=== PATIENT | female | born 1940 | race Caucasian/White ===

== ENCOUNTER 2017-04-02 17:25 | Inpatient (IN) | payer MEDICARE ==
[~2017-04-02] VITALS: Ht 162.6 cm; Wt 65.0 kg
[~2017-04-02 17:25] MED LIST: ALLEGRA 60 MG T60 MG PO; AMBIEN10 MG PO; ARICEPT10 MG PO; ATIVAN0.5 MG PO; ATIVAN1 MG PO; BENTYL10 MG PO; CALCIUM 500 + D1 TAB PO; CIPRO500 MG PO; COREG12.5 MG PO; CYMBALTA30 MG PO; DEPAKOTE ER250 MG PO; FLAGYL500 MG PO; FLOMAX0.4 MG PO; LEVAQUIN500 MG PO; MELATONIN 3 MG1 TAB PO; METAMUCIL PACKE1 PKT PO; MIRALAX17 GM PO; NAMENDA10 MG PO; NAMENDA10 MG/5 ML PO; NEURONTIN 300300 MG PO; PAMELOR10 MG PO; PEPCID20 MG PO; PREPARATION H O57 GM TOPICAL; PRILOSEC20 MG PO; PROTONIX40 MG PO; RISPERDAL0.25 MG PO; TOPROL XL25 MG PO; TRAZODONE HCL50 MG PO; TUMS500 MG PO; VITAMIN D31000 UNIT PO; ZOFRAN ODT4 MG/UDTAB PO
[2017-04-02 19:30] VITALS: BP 67/42
[2017-04-02] MEDS ORDERED: IBUPROFEN200 MG PO (19:35)
[2017-04-02] MEDS ORDERED: ACETAMINOPHEN325 MG PO (19:36)
[2017-04-02] MEDS ORDERED: GAS-X80 MG PO (19:38)
[2017-04-02] MEDS ORDERED: CARAFATE1 G PO (19:39)
[2017-04-02] MEDS ORDERED: MELATONIN 3 MG1 TAB PO (19:40)
--- NOTE | 2017-04-03 03:10 | NUR ---
NEW ADMIT TO DOCTOR [facility] TO [facility]. PATIENT WAS ADMITTED FOR INCREASED AGGRESSION, AGGITATION, AND SUICIDAL IDEATIONS. UPON ACCEPTANCE OF PATIENT, PATIENT WAS CALM AND COOPERATIVE. ORIENTED TO UNIT. PATIENT HAS A DNR STATUS AT PRISON.
[2017-04-03 07:08] LABS: BASOPHILS 0.4 % (0-2); EOSINOPHILS 0.7 % (0-7); HEMATOCRIT 32.1 % (36.0-48.0); HEMOGLOBIN 10.6 g/dL (12-16); LYMPHOCYTES 27.6 % (15-50); MCH 27.6 pg (26.0-34.0); MCV 83.6 fL (80.0-100.0); MEAN PLATELET VOLUME 9.4 fL (7.4-10.4); MONOCYTES 9.8 % (2-11); NEUTROPHILS 60.5 % (40-80); PLATELET COUNT 375 10x3/uL (130-400); RBC 3.84 10x6/uL (4.00-5.40); RDW 13.2 % (11.5-14.5); WBC 7.2 10x3/uL (4.8-10.8)
[2017-04-03 07:17] LABS: HEMOGLOBIN A1C 6.5 % (4.8-6.0)
[2017-04-03 07:34] LABS: ALBUMIN 2.8 g/dL (3.4-5.0); ANION GAP 11.1 mmol/L (8-16); BILIRUBIN - TOTAL 0.26 mg/dL (0.2-1.3); CALCIUM 8.6 mg/dL (8.5-10.1); CARBON DIOXIDE 27.3 mmol/L (21.0-32.0); CHOL - HDL RATIO 3.6 ratio (2.3-4.1); CREATININE - SERUM 1.1 mg/dL (0.6-1.3); LDL-HDL RATIO 2.1 ratio (1.5-3.5); POTASSIUM - SERUM 3.4 mmol/L (3.5-5.1); PROTEIN - SERUM 6.6 g/dL (6.4-8.2); THYROID STIMULATING HORMONE 1.36 uIU/mL (0.36-3.74)
[2017-04-03 13:53] LABS: APPEARANCE CLOUDY (CLEAR); BILIRUBIN NEGATIVE (NEGATIVE); COLOR YELLOW (YELLOW); GLUCOSE NEGATIVE (NEGATIVE); KETONE NEGATIVE (NEGATIVE); NITRITE NEGATIVE (NEGATIVE); PROTEIN 2+ mg/dL (NEGATIVE); UROBILINOGEN NORMAL (NORMAL)
[2017-04-03 13:54] LABS: AMORPHOUS SEDIMENT >1+ /lpf (NONE SEEN); BACTERIA MANY /hpf (NONE SEEN); EPITHELIAL CELLS 0-5 /hpf (0-5); GRANULAR CAST NONE SEEN /lpf (NONE SEEN); HYALINE CAST NONE SEEN /lpf (NONE SEEN); MUCUS <1+ /lpf (NONE SEEN); RED CELL CAST NONE SEEN /lpf (NONE SEEN); RED CELLS - URINE 0-5 /hpf (0-5); SPERMATOZOA NONE SEEN /hpf (NONE SEEN); WAXY CAST NONE SEEN /lpf (NONE SEEN); YEAST NONE SEEN /hpf (NONE SEEN)
[2017-04-03 14:03] VITALS: BP 110/75; BMI 24.6
[2017-04-03 16:04] VITALS: BP 110/75
--- NOTE | 2017-04-03 18:37 | NUR ---
HAS BEEN ORIENTED TO SELF,PLACE AND TIME BUT DENIES REASON FOR ADMISSION.COMPLIANT WITH MEDS AND STAFF.AMBULATORY.WILL CONTINUE WITH PLAN OF CARE,MONITOR FOR CHANGES AND SAFETY.
[2017-04-03 19:30] VITALS: BP 115/86
--- NOTE | 2017-04-03 22:24 | NUR ---
RECEIVED IN HALLWAY OUTSIDE OF NURSES STATION. CALM AND COOPERATIVE WITH CARE AND ASSESSMENTS. NO SIGNS OF AGGRESSION. REDIRECT AND REORIENT NEEDED. ENCOURAGE TO EXPRESS NEEDS. RESTING QUIETLY IN BED AT THIS TIME. CONTINUE PLAN OF CARE
--- NOTE | 2017-04-03 22:43 | NUR ---
STATED RECTAL PAIN OF 9. PRN ADVIL 400MG PO GIVEN FOR PAIN
--- NOTE | 2017-04-04 05:02 | PSY ---
PATIENT NAME:YONG DUGAN MEDICAL RECORD: [id number] : 44 LOCATION:[facility] ADMISSION DATE: 04/02/17 ACCOUNT: [id number] PSYCHIATRIC EVALUATION DATE OF EVALUATION: 04/03/17 IDENTIFYING DATA: A 76-year-old white female, who was admitted for the second time to [facility]. HISTORY OF PRESENT ILLNESS: This patient has a preexisting diagnosis of dementia. She has been a fdc resident for some time. She currently lives in [facility]. long term staff reports the patient is becoming extremely confused and anxious and reportedly has made suicidal statements. The patient has been very medication seeking as well. On a previous admission 2 years ago, the patient had been making threats to the fdc staff. She had been claiming that she was being mistreated when in fact she was not. She did exhibit depressive symptoms as well. During that hospitalization, the patient exhibited agitated and disruptive behavior from time to time and did require redirection. However, she stabilized with the use of both mood stabilizing and antidepressant medications and was returned to the fdc. She is now again admitted as mentioned due to reported suicidal statements. PAST MEDICAL HISTORY: Significant for hypertension and GERD. FAMILY HISTORY: Noncontributory. ALLERGIES: LISTED HALDOL AND SEROQUEL. SOCIAL HISTORY: The patient is a long-term fdc resident. She does not have noted substance abuse issues, although she does exhibit med-seeking behavior in terms of benzodiazepines. MENTAL STATUS: On interview, the patient is hyperalert and intrusive. Mood is alternately irritable and elevated. Affect is brittle. Speech is overly loud and somewhat pressured. Content of thought shows nonspecific paranoid ideation and somatic focus. On sensorium testing, the patient is oriented to person, but not correctly as to place nor to time. Remote, intermediate, and short-term recall all show deficits. 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 AXIS III: Hypertension and gastroesophageal reflux disease. AXIS IV: Moderate. AXIS V: 36. PLAN: 1. The patient is admitted for further medical and psychiatric workup. 2. Supportive therapy. 3. Coordinate with referring facility regarding aftercare. TRANSINT:[id number] Voice Confirmation ID: [id number] DOCUMENT ID: [id number] JUNG STARKEY III, MD at 0502 CC: [id number] DICTATION DATE: 04/03/17923 SPRING LAYER: 04/03/1750 ADM IN [place] [id number] [place] [id number]
--- NOTE | 2017-04-04 09:51 | NUR ---
ADMINISTERED 650MG TYLENOL PER PT REQUEST FOR LEFT ABDOMEN PAIN 12/07 SHARP. NO S/SX OF ACUTE DISTRESS. WILL CONTINUE TO MONITOR
--- NOTE | 2017-04-04 10:38 | NUR ---
ORIENTED X 3 BUT DENIES REMEMBERING ACTION THAT CAUSED HER TO BE ADMITTED TO HOSPITAL.FREQUENTLY C/O PAIN IN LEFT UPPER ABD,STATES SHE HAS IBS AND THAT REMOVED A SMALL AMT OF HER COLON.TYLENOL WAS GIVEN FOR PAIN PER ORDERS BY MED NURSE.COMPLIANT WITH STAFF AND MEDS BUT IS ARGUMENTIVE ABOUT WHY SHE CAN'T GO BACK TO BED.WILL CONTINUE WITH PLAN OF CARE,MONITOR FOR CHANGES AND SAFETY.
--- NOTE | 2017-04-04 13:03 | NUR ---
BECAME VERY AGGITATED AND DEMANDING ABOUT WHO COULD SIT ON SOFA POST LUNCH.WANTED THE TWO WOMEN WHOM HAD BEEN SITTING THERE WITH HER THIS MORNING TO SIT THERE.NURSE TOLD HER ANYONE CAN SIT ON SOFA,SHE STUCK HER TONGUE OUT IN A SPITEFUL MANNER BUT THEN SAT ON SOFA AND COVERED UP HER HEAD.
--- NOTE | 2017-04-04 16:23 | NUR ---
DURING VISITATION AND DR. ROBERTO ROUNDING WITH PT AND FAMILY, PT STARTED VOMITTING AFTER COMPLAINING OF BEING NAUSEATED. DR. ROBERTO GAVE VERBAL ORDER TO GIVE 4MG ZOFRAN IM. ADMINISTERED IN RIGHT DELTOID.
[2017-04-04 19:09] VITALS: BP 157/76
[2017-04-04 20:30] VITALS: BP 180/83
--- NOTE | 2017-04-04 21:47 | NUR ---
RECEIVED IN HALLWAY. WALKING TO HER BEDROOM. ATTENTION SEEKING AT TIMES. CALM AND COOPERATIVE WITH CARE AND ASSESSMENTS. DENIES THOUGHTS OF SELF HARM. NO SIGNS OF AGGRESSION. REDIRECT AND REORIENT NEEDED. CONTINUES TO LOCAL OPERATOR HALLWAY OUTSIDE OF NURSES STATION. CONTINUE PLAN OF CARE
[2017-04-05 07:39] VITALS: BMI 24.5
[2017-04-05 11:33] VITALS: Ht 162.6 cm; Wt 65.0 kg
[2017-04-05 12:18] VITALS: BP 119/79
--- NOTE | 2017-04-05 13:00 | NUR ---
ORIENT X 3. CALM AND COOPERATIVE WITH CARE AND ASSESSMENT. COMPLIANT WITH TAKING MEDICATIONS. CONTINUE POC AND MONITOR FOR SAFETY AND CHANGES.
[2017-04-05 20:35] VITALS: BP 173/77
--- NOTE | 2017-04-05 20:59 | NUR ---
RECEIVED IN BEDROOM. RESTING IN BED WITH EYES OPEN. CALM AND COOPERATIVE WITH CARE AND ASSESSMENTS. NO SIGNS OF AGGRESSION. DENIES THOUGHTS OF SELF HARM. REDIRECT AND REORIENT NEEDED. ENCOURAGE TO EXPRESS NEEDS. CONTINUES TO REST QUIETLY IN BED. CONTINUE PLAN OF CARE
[2017-04-06 03:09] LABS: FOLATE (FOLIC ACID) - SERUM 9.3 ng/mL (>3.0); RAPID PLASMA REAGIN Non Reactive (Non Reactive)
--- NOTE | 2017-04-06 10:17 | PN ---
PATIENT:YONG DUGAN MEDICAL RECORD: [id number] LOCATION:[facility]112 ADMISSION DATE: 04/02/17 PROGRESS NOTE DATE OF SERVICE: 04/05/2017 SUBJECTIVE: No new complaint. OBJECTIVE: The patient remains cooperative and even jovial. She associates well with other female patients. On exam, mood is euthymic. Affect is slightly expansive. Speech tends to be tangential. Content of thought is negative for overt psychosis. Sensorium is unchanged. ASSESSMENT: No change in diagnosis. PLAN: 1. Maintain current medications. 2. Continue supportive therapy. TRANSINT:[id number] Voice Confirmation ID: [id number] DOCUMENT ID: [id number] JUNG STARKEY III, MD at 1017 CC: [id number] DICTATION DATE: 04/05/17 1352 CRYSTAL CALIBRATOR: 04/05/17 1421 ADM IN [facility] [address] [place] [id number]
[2017-04-06 10:32] VITALS: BP 122/76
[2017-04-06 20:22] VITALS: BP 173/83
--- NOTE | 2017-04-06 21:15 | NUR ---
RECEIVED IN HALLWAY. WALKING TO HER ROOM FOR BEDTIME. CALM AND COOPERATIVE WITH CARE AND ASSESSMENTS. DENIES THOUGHTS OF SELF HARM. ENCOURAGE TO EXPRESS NEEDS. RESTING ON BED WITH EYES OPEN AT THIS TIME. CONTINUE PLAN OF CARE
[2017-04-07 08:00] VITALS: BP 110/56
--- NOTE | 2017-04-07 09:31 | PN ---
PATIENT:YONG DUGAN MEDICAL RECORD: [id number] LOCATION:[facility] ADMISSION DATE: 04/02/17 PROGRESS NOTE DATE OF SERVICE: 04/06/2017 SUBJECTIVE: No new complaint noted. OBJECTIVE: The patient is socializing well with other patients. She has been cooperative. No new behavioral problems. On exam, mood is pleasant and upbeat. Affect is slightly expansive. Speech is slightly pressured at times. Content of thought is negative for overt psychosis. Sensorium unchanged. ASSESSMENT: No change in diagnosis. PLAN: 1. Continue all current medications. 2. Continue supportive therapy. TRANSINT:[id number] Voice Confirmation ID: [id number] DOCUMENT ID: [id number] JUNG STARKEY III, MD at 0931 CC: [id number] DICTATION DATE: 04/06/17 1207 ALUMINUM BOATS ASSEMBLER: 04/06/17 1232 ADM IN [place] [address] [place] [address]
--- NOTE | 2017-04-07 14:27 | NUR ---
Alert, confused, very dramatic in presentation, med compliant, cooperative, calm. Seamus meds well with no s/s adverse reaction. Participates in group as directed. Denies pain. Cont plan of care including meds and group therapy as directed.
[2017-04-07 20:05] VITALS: BP 151/74
--- NOTE | 2017-04-07 21:19 | NUR ---
RECEIVED IN BEDROOM. RESTING IN BED WITH EYES CLOSED. RESPONDS TO VOICE. CALM AND COOPERATIVE WITH CARE AND ASSESSMENTS. NO SIGNS OF AGGRESSION. REDIRECT AND REOREINT NEEDED. ENCOURAGE TO EXPRESS NEEDS. CONTINUE TO REST QUIETLY IN BED WITH EYES CLOESD. CONTINUE PLAN OF CARE
--- NOTE | 2017-04-08 08:07 | PN ---
PATIENT:YONG DUGAN MEDICAL RECORD: [id number] LOCATION:[facility] ADMISSION DATE: 04/02/17 PROGRESS NOTE DATE OF SERVICE: 04/07/2017 SUBJECTIVE: No new complaint. OBJECTIVE: The patient continues to do well. She is rather jovial much of the time. She interacts well with other patients. She is tolerating medication well. On exam, mood is euthymic. Affect is bland. Speech is fairly fluent. Content of thought unchanged. Sensorium unchanged. ASSESSMENT: No change in diagnosis. PLAN: 1. Continue current medications. 2. Continue supportive therapy. TRANSINT:[id number] Voice Confirmation ID: [id number] DOCUMENT ID: [id number] JUNG STARKEY III, MD at 0807 CC: [id number] DICTATION DATE: 04/07/17 1153 FACILITIES CLERK: 04/07/17 1223 ADM IN [place] [address] [place] [address]
--- NOTE | 2017-04-08 09:47 | NUR ---
B) PATIENT IS AWAKE AND ALERT, SHE IS PLEASANT, SHE HAS NOT SHOWN ANY AGGRESSION OR MADE ANY S.I. TODAY. SHE AMBULATES INDEPENDENTLY. I) PROVIDE PRESCRIBED MEDS. R) PATIENT IS COMPLIANT WITH MEDS AND UNIT MILIE[facility]. P) CONTINUE POC.
[2017-04-08 11:59] VITALS: BP 126/76
--- NOTE | 2017-04-08 12:30 | NUR ---
patient c/o anxiety and requests an anti anxiety med. ativan 0.5 mg po given.
--- NOTE | 2017-04-08 19:51 | NUR ---
RECEIVED IN DAYROOM. LAYING ON COUCH WITH EYES OPEN. WATCHING TV. CALM AND COOPERATIVE WITH CARE AND ASSESSMENT. NO SIGNS OF AGGRESSION. DENIES THOUGTS OF SELF HARM. ENCOURAGE TO EXPRESS NEEDS. PATIENT CONTINUES TO LAY ON COUCH AND WATCH TV AT THIS TIME. CONTINUE PLAN OF CARE.
[2017-04-08 22:00] VITALS: BP 175/92
--- NOTE | 2017-04-09 07:55 | NUR ---
RECEIVED IN BEDROOM. RESTING IN BED WITH EYES OPEN. CALM AND COOPERATIVE WITH CARE AND ASSESSMENTS. NO SIGNS OF AGGRESSION. DENIES THOUGHTS OF SELF HARM. REDIRECT AND REORIENT. ENCOURAGE TO EXPRESS NEEDS. SOCIALIZING WITH PEERS AT THIS TIME. CONTINUE PLAN OF CARE
--- NOTE | 2017-04-09 10:07 | PN ---
PATIENT:YONG DUGAN MEDICAL RECORD: [id number] LOCATION:[facility]112 ADMISSION DATE: 04/02/17 PROGRESS NOTE DATE OF SERVICE: 04/08/2017 SUBJECTIVE: No new complaint. OBJECTIVE: The patient continues to show lability of affect, but can be redirected. On exam, mood is euthymic. Affect is somewhat expansive. Speech is rather tangential. Content of thought is unchanged. Sensorium unchanged. ASSESSMENT: No change in diagnosis. PLAN: 1. Maintain current medication. 2. Continue supportive therapy. TRANSINT:[id number] Voice Confirmation ID: [id number] DOCUMENT ID: [id number] JUNG STARKEY III, MD at 1007 CC: [id number] DICTATION DATE: 04/08/17 1149 CYTOGENETIC TECHNICIAN: 04/08/17 1205 ADM IN [place] [address] [place] [address]
[2017-04-09 10:47] VITALS: BP 112/61
[2017-04-09 19:30] VITALS: BP 137/66
--- NOTE | 2017-04-10 05:18 | NUR ---
B) Patient is alert and oriented to self and hospital, calm and cooperative, social with peers I) Administered sched medications, monitored for safety R) Medication compliat, no S.I. this shift P) Continue plan of care.
[2017-04-10 08:00] VITALS: BP 123/71
--- NOTE | 2017-04-10 08:10 | NUR ---
B) PATIENT AWAKENS AND CAME TO THE NURSES STATION STATING "I AM SICK, ASSESSMENT DONE AND HER ABDOMEN IS HARD, BOWEL SOUNDS ARE HYPOACTIVE, SHE SAYS SHE HAS NOT HAD A BM TODAY AND SHE FEELS "SICK". PATIENT AMBULATES INDEPENDENTLY. SHE IS ORIENTED X3, BUT SHE HAS POOR INSIGHT INTO HER ILLNESS AND SITUATION. I) PROVIDE PRESCRIBED MEDS. R) PATIENT IS COMPLIANT WITH MEDS. P) CONTINUE POC.
[2017-04-10 19:28] VITALS: BP 146/68
--- NOTE | 2017-04-11 03:27 | NUR ---
B) patient is alert and oriented to self, complaints of loose stools, cooperative with staff, I) Administered scheduled medications, monitored for safety R) Medication compliant, resting quietly in bed P) Continue plan of care.
[2017-04-11 07:00] VITALS: BP 145/76
--- NOTE | 2017-04-11 16:28 | NUR ---
IS ORIENTED X 3 BUT HAS PERIODS OF CONFUSION.NO AGGRESSION OBSERVED TODAY.DENIES ANY THOUGHTS OF HARMING SELF.IS AMBULATORY.COMPLIANT WITH MEDS.WILL CONTINUE WITH PLAN OF CARE,MONITOR FOR CHANGES AND SAFETY.
[2017-04-11 19:30] VITALS: BP 122/62
--- NOTE | 2017-04-11 20:53 | NUR ---
RECEIVED IN BEDROOM. RESTING IN BED WITH EYES OPEN. CALM AND COOPERATIVE WITH CARE AND ASSESSMENTS. DENIES ANY THOUGHTS OF SELF HARM. STATES SHE IS HAPPILY GOING TO [facility] TOMORROW. ENCOURAGE TO EXPRESS NEEDS. CONTINUES TO REST QUIETLY IN BED. CONTINUE PLAN OF CARE
[2017-04-12 08:17] VITALS: BP 124/76
--- NOTE | 2017-04-12 10:30 | NUR ---
AWAKE AND ORIENTED TO SELF AND HOSPITAL. AMBULATES INDEPENDENTLY. CALM AND COOPERATIVE WITH ASSESSMENT AND CARE. MONITOR FOR SAFETY AND CHANGES. WILL CONTINUE PLAN OF CARE.
[2017-04-12 19:21] VITALS: BP 149/73
--- NOTE | 2017-04-12 19:46 | NUR ---
RECEIVED IN BEDROOM. RESTING IN BED WITH EYES OPEN. SOCIAL WITH STAFF. IN GOOD SPIRITS. ALERT AND ORIENTED. CALM AND COOPERATIVE WITH CARE AND ASSESSMENTS. NO SIGNS OF AGGRESSION. DENIES THOUGHTS OF SELF HARM. CONTINUES TO REST QUIETLY IN HER ROOM. CONTINUE PLAN OF CARE
--- NOTE | 2017-04-13 06:06 | PN ---
PATIENT:YONG DUGAN MEDICAL RECORD: [id number] LOCATION:[facility]I [facility] ADMISSION DATE: 04/02/17 PROGRESS NOTE DATE OF SERVICE: 04/12/2017 SUBJECTIVE: No new complaint noted. OBJECTIVE: The patient has remained in fairly good behavioral control. We are awaiting on assessment from [facility]. On exam, mood is for the most part euthymic. Affect is slightly expansive. Speech is tangential. Content of thought is negative for overt psychosis. Sensorium unchanged. ASSESSMENT: No change in diagnosis. PLAN: 1. Continue current medications. 2. Continue supportive therapy. TRANSINT:[id number] Voice Confirmation ID: [id number] DOCUMENT ID: [id number] JUNG STARKEY III, MD at 0606 CC: [id number] DICTATION DATE: 04/12/17 1308 ROUGH RICE GRADER: 04/12/17 1324 ADM IN [facility] [address] [place] [id number]
[2017-04-13 11:08] VITALS: BP 127/71
--- NOTE | 2017-04-13 14:18 | NUR ---
Nutrition Follow Up: Chart reviewed. Pt is eating 38% meal avg on a regular diet with ground meat. +BM 04/08/17. Meds and labs reviewed. Rec continue current diet. Pt may benefit from an appetite stimulant. RD following.
[2017-04-13 20:06] VITALS: BP 101/41
--- NOTE | 2017-04-13 22:02 | NUR ---
RECEIVED IN BEDROOM. RESTING ON HER BED EYES CLOSED. RESPONDS TO VOICE. REQUEST ASSIST TO GET READY FOR BED. STATES THAT SHE IS SO WEAK. CALM AND COOPERATIVE WITH CARE AND ASSESSMENTS. ENCOURAGE TO EXPRESS NEEDS. CONTINUES TO RESTING IN BED WITH EYES CLOSED. CONTINUE PLAN OF CARE
--- NOTE | 2017-04-14 05:14 | PN ---
PATIENT:YONG DUGAN MEDICAL RECORD: [id number] LOCATION:[facility]I To[facility]112 ADMISSION DATE: 04/02/17 PROGRESS NOTE DATE OF SERVICE: 04/13/2017 SUBJECTIVE: No new complaint. OBJECTIVE: We are continuing to wait on assessment from [facility]. Patient is stable. On exam, mood is euthymic. Affect bland. Speech fairly fluent. Content of thought is negative for overt psychosis. Sensorium unchanged. ASSESSMENT: No change in diagnosis. PLAN: 1. Continue all current medications. 2. Continue supportive therapy. TRANSINT:[id number] Voice Confirmation ID: [id number] DOCUMENT ID: [id number] JUNG STARKEY III, MD at 0514 CC: [id number] DICTATION DATE: 04/13/17 1039 RETORT COOLER: 04/13/17 1103 ADM IN [facility] [address] [place] [address]
[2017-04-14 08:00] VITALS: BP 128/56
[2017-04-14] MEDS ORDERED: FEXOFENADINE HC60 MG PO (10:04)
[2017-04-14] MEDS ORDERED: TRAZODONE HCL50 MG PO (10:05)
[2017-04-14] MEDS ORDERED: CHRONULAC30 ML PO (10:06)
[2017-04-14] MEDS ORDERED: FLUTICASONE PRO16 GM NASAL (10:07)
[2017-04-14] MEDS ORDERED: METAMUCIL FIB1 WAFER PO (10:07)
[2017-04-14] MEDS ORDERED: AMITIZA24 MCG PO (10:07)
--- NOTE | 2017-04-14 13:00 | NUR ---
DISCHARGED TO [facility]. ALL DISCHARGE PAPERWORKREVIEWED AND FAXED TO [facility]. ALL BELONGINGS BAGGED AND ACCOUNTED FOR.
--- NOTE | 2017-04-15 08:22 | DS ---
PATIENT:YONG DUGAN :44 MEDICAL RECORD: [id number] DISCHARGE SUMMARY ADMISSION DATE: 04/02/17 DISCHARGE DATE: 04/14/17 DATE OF ADMISSION: 04/02/2017. DATE OF DISCHARGE: 04/14/2017. HISTORY: A 76-year-old white female with previous diagnosis of dementia, current resident of a local care home. The patient had become very confused and agitated and had reportedly made suicidal statements. For further details, please see previously dictated history. COURSE IN THE HOSPITAL: The patient was seen in consultation by Dr. Covarrubias. He noted the presence of gastroesophageal reflux disease, hypothyroidism, irritable bowel syndrome and recent urinary tract infection. The patient was treated with antibiotics for her infection and showed a good resolution of symptoms. She was placed on Aricept 10 mg h.s. for her dementia symptoms. She was maintained on trazodone 100 mg h.s. for insomnia and Namenda 10 mg b.i.d., also for depressive symptoms. It was not necessary to use routine antipsychotics. The patient showed good resolution of her symptoms. She continued to show an expansive affect, but aside from this, no further new problems. By the time of discharge, she was felt to be stable enough to return to the care home environment. 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 AXIS II: Cluster B personality traits. AXIS III: Hypertension, gastroesophageal reflux disease. AXIS IV: Moderate. AXIS V: 44. PLAN: 1. The patient is discharged on current medications. 2. Diet and activities as tolerated. 3. Follow up through primary care physician. TRANSINT:[id number] Voice Confirmation ID: [id number] DOCUMENT ID: [id number] JUNG STARKEY III, MD at 0822 CC: [id number] DICTATION DATE: 04/14/17 1124 RAW HIDE TRIMMER: 04/14/17 1312 DIS IN 04/14/17 [place] [address] [place] [address]
== END 2017-04-14 13:00 | DRG 57 ==
LOC: D.PSYCH 17:25
PROVIDERS: ADMIT Psychiatry & Neurology Psychiatry
DX: G30.9 Alzheimer's disease, unspecified (principal); F02.81 Dementia in other diseases classified elsewhere, unspecified severity, with behavioral disturbance; N39.0 Urinary tract infection, site not specified; I10 Essential (primary) hypertension; K21.9 Gastro-esophageal reflux disease without esophagitis; F41.8 Other specified anxiety disorders; E03.9 Hypothyroidism, unspecified; K58.1 Irritable bowel syndrome with constipation; J30.9 Allergic rhinitis, unspecified; K64.9 Unspecified hemorrhoids

== ENCOUNTER 2018-12-10 03:48 | Emergency (ER) | payer MEDICARE ==
[~2018-12-10] VITALS: Ht 162.6 cm; Wt 63.6 kg
[~2018-12-10 03:48] MED LIST changes: +ACETAMINOPHEN325 MG PO; +AMITIZA24 MCG PO; +CARAFATE1 G PO; +CHRONULAC30 ML PO; +FEXOFENADINE HC60 MG PO; +FLUTICASONE PRO16 GM NASAL; +GAS-X80 MG PO; +IBUPROFEN200 MG PO; +METAMUCIL FIB1 WAFER PO
[2018-12-10 03:51] VITALS: Ht 162.6 cm; Wt 63.6 kg
[2018-12-10] MEDS ORDERED: PROTONIX20 MG PO (03:52)
[2018-12-10 04:46] LABS: APPEARANCE CLEAR (CLEAR); BILIRUBIN NEGATIVE (NEGATIVE); COLOR YELLOW (YELLOW); GLUCOSE NEGATIVE (NEGATIVE); KETONE NEGATIVE (NEGATIVE); NITRITE NEGATIVE (NEGATIVE); PROTEIN NEGATIVE (NEGATIVE); RED CELLS - URINE 0-5 /hpf (0-5); SPECIFIC GRAVITY 1.015 (1.005-1.020); UROBILINOGEN NORMAL (NORMAL); WHITE CELLS - URINE 0-5 /hpf (0-5)
[2018-12-10 04:47] LABS: BACTERIA FEW /hpf (NONE SEEN); EPITHELIAL CELLS NSEEN /hpf (0-5)
[2018-12-10 04:55] LABS: UDS - AMPHET NEGATIVE QUAL (NEGATIVE); UDS - BARB NEGATIVE QUAL (NEGATIVE); UDS - BENZO NEGATIVE QUAL (NEGATIVE); UDS - COCAINE NEGATIVE QUAL (NEGATIVE); UDS - OPIATE NEGATIVE QUAL (NEGATIVE); UDS - PCP NEGATIVE QUAL (NEGATIVE); UDS - THC NEGATIVE QUAL (NEGATIVE)
[2018-12-10 05:06] LABS: APTT 24.5 SECONDS (22.8-39.4); INR 0.99 (0.85-1.17); PROTIME 12.6 SECONDS (11.6-15.0)
[2018-12-10 05:09] LABS: ALBUMIN 3.5 g/dL (3.4-5.0); ALKALINE PHOSPHATASE 114 U/L (46-116); ALT (SGPT) 26 U/L (10-68); BASOPHILS 0.4 % (0-2); BILIRUBIN - TOTAL 0.24 mg/dL (0.2-1.3); CALC OSMOLALITY 276 mosm/kg (275-300); CALCIUM 9.2 mg/dL (8.5-10.1); CARBON DIOXIDE 25.4 mmol/L (21.0-32.0); CHLORIDE - SERUM 100 mmol/L (98-107); CREATININE - SERUM 1.3 mg/dL (0.6-1.3); EOSINOPHILS 2.8 % (0-7); HEMATOCRIT 39.9 % (36.0-48.0); HEMOGLOBIN 13.4 g/dL (12-16); IMMATURE GRANULOCYTES 1.4 % (0-5); LYMPHOCYTES 21.7 % (15-50); MCH 28.2 pg (26.0-34.0); MCHC 33.6 g/dL (31.0-37.0); MEAN PLATELET VOLUME 10.5 fL (7.4-10.4); MONOCYTES 6.9 % (2-11); NEUTROPHILS 66.8 % (40-80); PLATELET COUNT 244 10x3/uL (130-400); POTASSIUM - SERUM 3.7 mmol/L (3.5-5.1); PROTEIN - SERUM 7.7 g/dL (6.4-8.2); RBC 4.75 10x6/uL (4.00-5.40); RDW 13.3 % (11.5-14.5); SODIUM 136 mmol/L (136-145); UREA NITROGEN 16 mg/dL (7-18); WBC 4.9 10x3/uL (4.8-10.8); eGFR NON AFRICAN AMERICAN 42 mL/min (90-120)
[2018-12-10 05:12] LABS: GLUCOSE 164 mg/dL (74-106)
[2018-12-10 05:18] LABS: MAGNESIUM - SERUM 2.4 mg/dL (1.8-2.4); THYROID STIMULATING HORMONE 12.03 uIU/mL (0.36-3.74)
[2018-12-10 05:21] LABS: TROPONIN-I < 0.017 ng/mL (0.000-0.060)
[2018-12-10 06:43] VITALS: BP 127/76
== END 2018-12-10 06:15 ==
LOC: D.ER 03:48
PROVIDERS: Family Medicine
DX: R41.82 Altered mental status, unspecified (principal); E03.9 Hypothyroidism, unspecified; I10 Essential (primary) hypertension; G30.9 Alzheimer's disease, unspecified; F02.80 Dementia in other diseases classified elsewhere, unspecified severity, without behavioral disturbance, psychotic disturbance, mood disturbance, and anxiety; R55 Syncope and collapse